=== PATIENT | female | born 1975 | race Caucasian/White ===

== ENCOUNTER → 2018-11-23 | Outpatient (CLI) | payer OTHER ==
--- NOTE | 2018-11-23 13:50 | XR ---
EXAMINATION TYPE: XR chest 2V DATE OF EXAM: 11/23/2018 COMPARISON: NONE HISTORY: Chest pain TECHNIQUE: Frontal and lateral views of the chest are obtained. FINDINGS: There is no focal air space opacity. No evidence for pneumothorax. No pleural effusion. The cardiac silhouette size is within normal limits. The osseous structures are grossly intact. IMPRESSION: 1. No acute cardiopulmonary process.
== END | disposition home or self-care (01) ==
LOC: LABWHC1 10:44
PROVIDERS: ATTEND Family Medicine
DX: R00.2 Palpitations (principal); R53.83 Other fatigue
CPT/HCPCS: 71046; 93005

== ENCOUNTER 2019-06-13 17:39 | Emergency (ER) | payer OTHER ==
[2019-06-13 17:49] VITALS: BP 169/95; PULSE 100; RESP 20; TEMP 99.6
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
== END 2019-06-13 19:30 | disposition home or self-care (01) ==
LOC: EC 17:39
DX: S09.90XA Unspecified injury of head, initial encounter (principal); M47.812 Spondylosis without myelopathy or radiculopathy, cervical region; V43.52XA Car driver injured in collision with other type car in traffic accident, initial encounter; Y93.89 Activity, other specified; Y92.410 Unspecified street and highway as the place of occurrence of the external cause
CPT/HCPCS: 70450; 71046; 72125; 99284

== ENCOUNTER → 2019-11-16 | Outpatient (CLI) | payer OTHER ==
--- NOTE | 2019-11-16 11:44 | MM ---
Reason for exam: clinical finding. Last mammogram was performed 7 years and 10 months ago. History: Took hormonal contraceptives for 3 years beginning at age 21. Indicated problem(s): lump or thickening in the left breast. Physical Findings: Nurse Summary: 0.5 x 1cm and 1 x 1cm nodule in the left breast upper outer quadrant at 2 o'clock and 4 o'clock (nurse ts). MG Diagnostic Mammo w CAD ADRIEN Bilateral CC and MLO view(s) were taken. LM view(s) were taken of the left breast. Prior study comparison: January 28, 2012, CAD bilateral diagnostic mammogram. The breast tissue is heterogeneously dense. This may lower the sensitivity of mammography. Finding: There are stable grouped/clustered calcifications in the upper inner quadrant, posterior position of the right breast. There is no discrete abnormality including area of concern left upper outer quadrant. These results were verbally communicated with the patient and result sheet given to the patient on 11/16/19. ASSESSMENT: Incomplete: need additional imaging evaluation, BI-RAD 0 RECOMMENDATION: Ultrasound of the left breast.
--- NOTE | 2019-11-16 11:47 | USB ---
Reason for exam: additional evaluation requested from abnormal screening. History: Took hormonal contraceptives for 3 years beginning at age 21. US Breast LT Left complete breast ultrasound includes all four quadrants, the retroareolar region and axilla. Finding demonstrates a 0.4 x 0.2 x 0.5cm oval, lobular, complex, cystic cluster at 2:30 inferior to BB, probable small cystic cluster and a 1.0 x 1.6 x 0.9cm lymph node at the axilla. These results were verbally communicated with the patient and result sheet given to the patient on 11/16/19. ASSESSMENT: Probably benign, BI-RAD 3 RECOMMENDATION: Ultrasound of the left breast in 6 months.
== END | disposition home or self-care (01) ==
LOC: RADMAMWWP 09:24
PROVIDERS: ATTEND Nurse Practitioner Family
DX: N64.4 Mastodynia (principal); N63.20 Unspecified lump in the left breast, unspecified quadrant; N63.10 Unspecified lump in the right breast, unspecified quadrant
CPT/HCPCS: 77066

== ENCOUNTER → 2020-05-05 | Outpatient (CLI) | payer OTHER ==
--- NOTE | 2020-05-05 10:57 | USB ---
Reason for exam: clinical finding. History: Took hormonal contraceptives for 3 years beginning at age 21. Physical Findings: Nurse Summary: left palpable 2:30, 0.5 x 1cm, movable, tender (nurse ts). US Breast Limited LT Left limited breast ultrasound including focal area of concern, retroareolar and axilla demonstrates a 4 x 2 x 2mm oval, cystic lesion at 2 o'clock. These results were verbally communicated with the patient and result sheet given to the patient on 05/05/20. ASSESSMENT: Benign, BI-RAD 2 RECOMMENDATION: Routine screening mammogram of both breasts in 6 months.
== END | disposition home or self-care (01) ==
LOC: RADUSWWP 10:00
PROVIDERS: ATTEND Nurse Practitioner Women's Health
DX: N60.02 Solitary cyst of left breast (principal); R92.8 Other abnormal and inconclusive findings on diagnostic imaging of breast